=== PATIENT | female | born 2000 ===

== ENCOUNTER 2021-09-10 19:48 | Emergency (ER) ==
[~2021-09-10] VITALS: Ht 154.9 cm; Wt 73.6 kg
[2021-09-10] MEDS ORDERED: GNP28TAB2 PO (20:04)
== END 2021-09-11 01:19 | disposition left against medical advice (07) ==
LOC: M ED 19:48
DX: Z53.21 Procedure and treatment not carried out due to patient leaving prior to being seen by health care provider (principal)

== ENCOUNTER 2021-09-11 01:16 | Outpatient (CLI) | payer MEDICARE, OTHER, SELFPAY ==
[~2021-09-11] VITALS: Ht 154.9 cm; Wt 74.8 kg
[~2021-09-11 01:16] MED LIST: GNP28TAB2 PO
[2021-09-11 01:34] VITALS: BP 124/71
[2021-09-11] MEDS ORDERED: LR 1,000 ML IV ONE (01:55)
[2021-09-11 02:51] LABS: HEMATOCRIT 33.3 % (36.0-47.0); HEMOGLOBIN 11.4 g/dl (12.0-15.5); MEAN CORPUSCULAR HEMOGLOBIN 31.8 pg (27.0-33.0); MEAN CORPUSCULAR HGB CONC 34.2 g/dl (32.0-36.5); PLATELET COUNT, AUTOMATED 241 10^3/uL (150-450); RED BLOOD COUNT 3.58 10^6/uL (4.00-5.40); WHITE BLOOD COUNT 13.3 10^3/uL (4.0-10.0)
[2021-09-11 03:17] LABS: ALBUMIN 3.2 GM/DL (3.2-5.2); ALT/SGPT 21 U/L (12-78); BILIRUBIN,TOTAL 0.3 MG/DL (0.2-1.0); BLOOD UREA NITROGEN 12 MG/DL (7-18); CALCIUM LEVEL 9.3 MG/DL (8.5-10.1); CARBON DIOXIDE LEVEL 26 MEQ/L (21-32); CHLORIDE LEVEL 105 MEQ/L (98-107); GLUCOSE, FASTING 89 MG/DL (70-100); POTASSIUM SERUM 3.6 MEQ/L (3.5-5.1); SODIUM LEVEL 138 MEQ/L (136-145); TOTAL PROTEIN 7.5 GM/DL (6.4-8.2)
[2021-09-11 03:42] VITALS: BP 116/58
[2021-09-11 05:10] VITALS: BP 99/54
[2021-09-11 06:24] VITALS: BP 110/53
== END 2021-09-11 08:35 | disposition home or self-care (01) ==
LOC: M LDO 01:16
PROVIDERS: ATTEND Advanced Practice Midwife
DX: O26.892 Other specified pregnancy related conditions, second trimester (principal); R10.30 Lower abdominal pain, unspecified; Z3A.24 24 weeks gestation of pregnancy